=== PATIENT | female | born 1940 | race Caucasian/White ===

== ENCOUNTER → 2016-12-09 12:05 | Outpatient (CLI) | payer MEDICARE | END | disposition home or self-care (01) | LOC: D.RAD 12:05 | DX: R13.12 Dysphagia, oropharyngeal phase (principal) ==

== ENCOUNTER 2018-02-06 14:09 | Inpatient (IN) | payer MEDICARE, MEDICAID ==
[~2018-02-06] VITALS: Ht 157.5 cm; Wt 68.9 kg
--- NOTE | ~2018-02-06 | PN ---
PATIENT:CRISTINA COLON MEDICAL RECORD: [id number] LOCATION:MARINA S[facility] ADMISSION DATE: 02/06/18 PROGRESS NOTE DATE OF SERVICE: 02/09/2018 SUBJECTIVE: The patient's case was discussed with staff. She has no new complaint. OBJECTIVE: The patient is extremely anxious. She constantly thinks that she is falling or her chair is rolling about. She is in need of almost constant reassurance and redirection from the nursing staff. ASSESSMENT: No change in diagnoses. PLAN: Current medicines have been reviewed. I am going to discontinue her Xanax and we will start her on a scheduled dose of Klonopin. Her long-term prognosis is guarded. I am hopeful that the Klonopin will calm her significantly. TRANSINT:[id number] Voice Confirmation ID: [id number] DOCUMENT ID: [id number] MARY HUMPHREYS MD at 1627 CC: [id number] DICTATION DATE: 02/09/18 171 GYROSCOPIC INSTRUMENT TESTER: 02/09/18 2158 ADM IN [place] [address] [place] [address]
--- NOTE | ~2018-02-06 | PN ---
PATIENT:CRISTINA COLON MEDICAL RECORD: [id number] LOCATION:SHEREENVenu OlmedoMary ADMISSION DATE: 02/06/18 PROGRESS NOTE DATE OF SERVICE: 02/27/2018 SUBJECTIVE: The patient's case was discussed with staff. She has no new complaint. OBJECTIVE: The patient is calmer but still intrusive and attention seeking. She has very limited insight about her condition. ASSESSMENT: No change in diagnoses. PLAN: Current medicines have been reviewed and will be maintained. I anticipate she can be transitioned out of the hospital soon. Her long-term prognosis is guarded. She did require p.r.n. medication last night. I will check another Depakote level. TRANSINT:[id number] Voice Confirmation ID: [id number] DOCUMENT ID: [id number] MARY HUMPHREYS MD at 1147 CC: [id number] DICTATION DATE: 02/27/18 1635 SALES SERVICE TECHNICIAN: 02/28/18 0051 ADM IN [place] [id number] [place] [address]
--- NOTE | ~2018-02-06 | PN ---
PATIENT:CRISTINA COLON MEDICAL RECORD: [id number] LOCATION:MARINA OlmedoMary ADMISSION DATE: 02/06/18 PROGRESS NOTE DATE OF SERVICE: 02/12/2018 SUBJECTIVE: The patient's case was discussed with staff. She has no new complaint. OBJECTIVE: The patient is somewhat sedated. She slept 10 hours last night. She certainly is much calmer, but I am concerned about the sedation. I am going to reduce her Klonopin to half its current dose. I will monitor her for clinical changes. TRANSINT:[id number] Voice Confirmation ID: [id number] DOCUMENT ID: [id number] MARY HUMPHREYS MD at 1556 CC: [id number] DICTATION DATE: 02/12/18 1315 DIRECTOR OF STRATEGIC PROGRAMS: 02/12/18 1533 ADM IN [place] [id number] [place] [address]
--- NOTE | ~2018-02-06 | PN ---
PATIENT:CRISTINA COLON MEDICAL RECORD: [id number] LOCATION:MARINA OlmedoMary ADMISSION DATE: 02/06/18 PROGRESS NOTE DATE OF SERVICE: 02/13/2018 SUBJECTIVE: The patient's case was discussed with staff. She has no new complaint. OBJECTIVE: The patient is in good behavioral control with limited insight about her condition. She does tolerate her medicines well. ASSESSMENT: No change in diagnoses. PLAN: The patient will be maintained on current medicines. She is disorganized, but certainly has shown some significant improvement. She is much calmer, but I am concerned about her appetite, which is not very robust. I am going to check a Depakote level. TRANSINT:[id number] Voice Confirmation ID: [id number] DOCUMENT ID: [id number] MARY HUMPHREYS MD at 1042 CC: [id number] DICTATION DATE: 02/13/18 1640 SIZE WORKER: 02/13/18 1754 ADM IN [place] [id number] [place] [address]
--- NOTE | ~2018-02-06 | PN ---
PATIENT:CRISTINA COLON MEDICAL RECORD: [id number] LOCATION:MARINA Sánchez ADMISSION DATE: 02/06/18 PROGRESS NOTE DATE OF SERVICE: 02/17/2018 SUBJECTIVE: The patient's case was discussed with staff. She has no new complaint. OBJECTIVE: The patient is in good behavioral control with limited insight about her condition. She tolerates her medicines well. ASSESSMENT: No change in diagnoses. PLAN: Current medicines and therapies have been reviewed and will be maintained. Long-term prognosis is guarded. The patient was cursing the staff earlier, but now is calmer. TRANSINT:[id number] Voice Confirmation ID: [id number] DOCUMENT ID: [id number] MARY HUMPHREYS MD at 1309 CC: [id number] DICTATION DATE: 02/17/18 1337 RESTAURANT SHIFT LEADER: 02/17/18 1553 ADM IN [place] [id number] [place] [id number]
--- NOTE | ~2018-02-06 | PN ---
PATIENT:CRISTINA COLON MEDICAL RECORD: [id number] LOCATION:MARINA OlmedoMary ADMISSION DATE: 02/06/18 PROGRESS NOTE DATE OF SERVICE: 02/18/2018 SUBJECTIVE: The patient's case was discussed with staff. She has no new complaint. OBJECTIVE: The patient is in good behavioral control. She is receiving a significant dose of both Klonopin and Geodon and does seem significantly calmer. ASSESSMENT: No change in diagnoses. PLAN: I am going to check a Depakote level on this patient. Her long-term prognosis is guarded. TRANSINT:[id number] Voice Confirmation ID: [id number] DOCUMENT ID: [id number] MARY HUMPHREYS MD at 1050 CC: [id number] DICTATION DATE: 02/18/18 1325 SECONDARY HISTORY TEACHER: 02/18/18 1350 ADM IN [place] [id number] [place] [address]
--- NOTE | ~2018-02-06 | PN ---
PATIENT:CRISTINA COLON MEDICAL RECORD: [id number] LOCATION:RamaJOHNVenu OlmedoMary ADMISSION DATE: 02/06/18 PROGRESS NOTE DATE OF SERVICE: 02/28/2018 SUBJECTIVE: The patient's case was discussed with staff. She has no new complaint. OBJECTIVE: The patient is in good behavioral control with limited insight about her condition. She tolerates her medicines well. She is confused and at times irritable and agitated, but not directly dangerous. She is going to be transitioned out of the hospital tomorrow. She is going to go to the [facility]. TRANSINT:[id number] Voice Confirmation ID: [id number] DOCUMENT ID: [id number] MARY HUMPHREYS MD at 1142 CC: [id number] DICTATION DATE: 02/28/18 1207 ASSOCIATE PROFESSOR OF PSYCHOLOGY: 02/28/18 1215 ADM IN [place] [id number] [place] [address]
--- NOTE | ~2018-02-06 | PN ---
PATIENT:CRISTINA COLON MEDICAL RECORD: [id number] LOCATION:MARINA OlmedoMary ADMISSION DATE: 02/06/18 PROGRESS NOTE DATE OF SERVICE: 02/25/2018 SUBJECTIVE: The patient's case was discussed with staff. She has no new complaint. OBJECTIVE: The patient is attention seeking and somewhat difficult to redirect. She is sleeping adequately and at this point, I do not think she is excessively sedated. She is likely to be at or near her baseline level of functioning. Again, staff is going to watch her extra carefully about medication compliance as I explained in yesterday's note about the almost 50% drop in her Depakote over the period of 4-5 days. TRANSINT:[id number] Voice Confirmation ID: [id number] DOCUMENT ID: [id number] MARY HUMPHREYS MD at 1052 CC: [id number] DICTATION DATE: 02/25/18 1218 DOBIE MAN: 02/25/18 1515 ADM IN [id number] [place] [address]
--- NOTE | ~2018-02-06 | PN ---
PATIENT:CRISTINA COLON MEDICAL RECORD: [id number] LOCATION:MARINA Sánchez ADMISSION DATE: 02/06/18 PROGRESS NOTE DATE OF SERVICE: 02/07/2018 SUBJECTIVE: The patient's case was discussed with staff. She has no new complaint. OBJECTIVE: The patient denies intent to harm herself or others. She is tolerating her medicines well. She is delusional and disorganized, but has not been openly aggressive. ASSESSMENT: No change in diagnoses. PLAN: I planned to treat the patient with Depakote for its mood stabilizing properties. She will be monitored for clinical changes associated with its use. Her long-term prognosis is guarded. TRANSINT:[id number] Voice Confirmation ID: [id number] DOCUMENT ID: [id number] MARY HUMPHREYS MD at 0827 CC: [id number] DICTATION DATE: 02/07/18 1446 GREEN CHAIN MARKER: 02/07/18 1507 ADM IN [id number] [place] [address]
--- NOTE | ~2018-02-06 | PN ---
PATIENT:CRISTINA COLON MEDICAL RECORD: [id number] LOCATION:MARINA Sánchez ADMISSION DATE: 02/06/18 PROGRESS NOTE DATE OF SERVICE: 02/08/2018 SUBJECTIVE: The patient's case was discussed with staff. She has no new complaint. OBJECTIVE: The patient denies intent to harm herself or others. She tolerates her medicines well. She is sleeping and eating reasonably well. She has not been openly aggressive with staff. ASSESSMENT: No change in diagnoses. PLAN: Current medicines have been reviewed. I am going to stop the BuSpar based upon a lack of clear evidence that it is benefitting the patient. She will be monitored for clinical changes associated with its use. TRANSINT:[id number] Voice Confirmation ID: [id number] DOCUMENT ID: [id number] MARY HUMPHREYS MD at 1613 CC: [id number] DICTATION DATE: 02/08/18 1224 BULK SYSTEM OPERATOR: 02/08/18 1244 ADM IN [place] [address] [place] [id number]
--- NOTE | ~2018-02-06 | PN ---
PATIENT:CRISTINA COLON MEDICAL RECORD: [id number] LOCATION:MARINA Sánchez ADMISSION DATE: 02/06/18 PROGRESS NOTE DATE OF SERVICE: 02/10/2018 SUBJECTIVE: The patient's case was discussed with staff. She has no new complaint. OBJECTIVE: The patient is in good behavioral control with limited insight about her condition. She does tolerate her medicines well. She has been very dysfunctional, thinking she is falling, this does not look at all like someone with vertigo. She is requiring almost constant attention from staff, I think she is delusional. She certainly is not eating either. ASSESSMENT: No change in diagnoses. PLAN: The patient has been prescribed Megace to assist with appetite stimulation. I am now going to start her on low dose of an antipsychotic to help with her grossly disorganized thought processes. TRANSINT:[id number] Voice Confirmation ID: [id number] DOCUMENT ID: [id number] MARY HUMPHREYS MD at 1249 CC: [id number] DICTATION DATE: 02/10/18 1646 FULLING MILL OPERATOR: 02/10/18 1741 ADM IN [facility] [address] [place] [address]
--- NOTE | ~2018-02-06 | PN ---
PATIENT:CRISTINA COLON MEDICAL RECORD: [id number] LOCATION:MARINA OlmedoMary ADMISSION DATE: 02/06/18 PROGRESS NOTE DATE OF SERVICE: 02/11/2018 SUBJECTIVE: The patient's case was discussed with staff. She has no new complaint. OBJECTIVE: The patient denies intent to harm herself or others. She is tolerating her medicines well. She did receive some p.r.n. Ativan because of some anxiety this morning, but I am encouraged that the changes that have been made to her medication regimen over the past few days will be ones that will help her in the long-term be less anxious and agitated. TRANSINT:[id number] Voice Confirmation ID: [id number] DOCUMENT ID: [id number] MARY HUMPHREYS MD at 1556 CC: [id number] DICTATION DATE: 02/11/18 1307 BOLT HEADER: 02/11/18 1312 ADM IN [facility] [address] [place] [id number]
--- NOTE | ~2018-02-06 | PN ---
PATIENT:CRISTINA COLON MEDICAL RECORD: [id number] LOCATION:MARINA OlmedoMary ADMISSION DATE: 02/06/18 PROGRESS NOTE DATE OF SERVICE: 02/15/2018 SUBJECTIVE: The patient's case was discussed with staff. She has no new complaint. OBJECTIVE: The patient was quite agitated this morning. She was yelling and actively hallucinating. ASSESSMENT: No change in diagnoses. PLAN: The patient's condition is worse. I already have started her on Zyprexa, but I am going to increase the dose today. TRANSINT:[id number] Voice Confirmation ID: [id number] DOCUMENT ID: [id number] MARY HUMPHREYS MD at 1021 CC: [id number] DICTATION DATE: 02/15/18 1218 MAINTENANCE JOB TITLES: 02/15/18 1419 ADM IN [facility] [address] [place] [address]
--- NOTE | ~2018-02-06 | DS ---
PATIENT:CRISTINA COLON :38 MEDICAL RECORD: [id number] DISCHARGE SUMMARY ADMISSION DATE: 02/06/18 DISCHARGE DATE: 03/01/18 PSYCHIATRIC DISCHARGE SUMMARY IDENTIFYING DATA: The patient is 77 years old and she is admitted to the hospital on a voluntary basis because of agitation. She has a known chronically mentally ill person who lives in a long-term in [place]. She has been very agitated there, yelling, cursing and threatening staff. She admits to some of this, but is minimizing it. She endorses auditory and visual hallucinations, but cannot give specifics. She denies that she wants to harm herself or others. HOSPITAL COURSE: The patient was admitted to the hospital and evaluated from both a medical, psychological, and social standpoint. She was treated with both mood stabilizing and memory enhancing medications. She showed improvement in her psychotic symptoms and her mood lability improved some, but she was still having some episodes of mood lability. She clearly has evidence of significant cognitive decline consistent with a dementing illness and she was given a cholinesterase inhibitor to assist with this problem. She subsequently had improved significantly and was no longer unmanageable in the long-term and was returned to the long-term. DISCHARGE DIAGNOSES: AXIS I: 1. Schizoaffective disorder, bipolar type. 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 AXIS II: None. AXIS III: Orthopedic surgery to the left knee. AXIS IV: Moderate stressors. AXIS V: Global assessment of functioning was 35. PLAN: At the time of discharge, the patient was having some attention seeking behaviors, but was not unmanageable. There were no psychotic symptoms and there was no evidence of direct or acute dangerousness to herself or others. She was subsequently discharged and is to have followup with her primary care long-term physician and her outpatient psychiatrist. She is to be maintained on her current medications. TRANSINT:[id number] Voice Confirmation ID: [id number] DOCUMENT ID: [id number] MARY HUMPHREYS MD CC: [id number] DICTATION DATE: 03/03/18 1245 ALLIANCES CONSULTANT: 03/04/18 0159 DIS IN 03/01/18 [place] [address]
--- NOTE | ~2018-02-06 | PN ---
PATIENT:CRISTINA COLON MEDICAL RECORD: [id number] LOCATION:MARINA Sánchez ADMISSION DATE: 02/06/18 PROGRESS NOTE DATE OF SERVICE: 02/24/2018 SUBJECTIVE: The patient's case was discussed with staff. She has no new complaint. OBJECTIVE: The patient denies intent to harm herself or others. She generally tolerates her medicines well. She is not over sedated. She is continuing to engage in attention seeking and help rejecting behavior, but it is not something that represents a direct danger. It is more of a management issue. Interestingly, I have a good reason to believe that she is not always taking her medications as she has a significant drop in her Depakote level over the past 5 days without a change in the dose. The only explanation is compliance. I am going to talk with the treatment team and nursing staff about watching her when she takes her medications more carefully to ensure that she is not cheeking any of them. I did not discuss this with her today and do not intend to do so, but will ask staff to be particularly vigilant in observing what she does. TRANSINT:[id number] Voice Confirmation ID: [id number] DOCUMENT ID: [id number] MARY HUMPHREYS MD at 1204 CC: [id number] DICTATION DATE: 02/24/18 185 INTERNET RETAILER: 02/25/18 0146 ADM IN [place] [id number] [place] [address]
--- NOTE | ~2018-02-06 | HP ---
PATIENT: CRISTINA COLON MEDICAL RECORD: [id number] ACCOUNT: [id number] LOCATION:MARINA Sánchez8 : 38 ADMISSION DATE: 02/06/18 PCP: No PCP HISTORY AND PHYSICAL EXAMINATION PSYCHIATRIC EVALUATION IDENTIFYING DATA: The patient is 77 years old and she is admitted to the hospital on a voluntary basis secondary to agitation. CHIEF COMPLAINT: None. HISTORY OF PRESENT ILLNESS: The patient is a known chronically mentally ill woman who lives in a detention in [place]. She has been very agitated there, yelling, cursing, threatening staff. She admits to some of this, but is minimizing it. She does endorse auditory and visual hallucinations, but is unable to give me specifics. She denies that she would seek to harm herself or others. PAST MEDICAL HISTORY: Significant for orthopedic changes to her leg. Apparently, she had fallen and has damaged her left knee in some way such that it is not functional and has not been for years. She otherwise is relatively free of chronic medical problems. PAST PSYCHIATRIC HISTORY: Significant for longstanding psychiatric problems with numerous hospitalizations and extensive inpatient and outpatient treatment. FAMILY PSYCHIATRIC HISTORY: Denied by the patient. ALLERGIES: No known drug allergies. CURRENT MEDICATIONS: Include Lamictal, BuSpar, Xanax, and a variety of vitamins. SOCIAL HISTORY: The patient is single. She has no significant work history and never functioned very well either socially or occupationally. She does have an adult son who is involved with her care. She denies a history of drug or alcohol abuse. She does not smoke cigarettes. MENTAL STATUS EXAMINATION: The patient is awake, alert and oriented to person and place, but not to time or situation. She identifies the year as 0. Her mood is anxious. Her affect is constricted. Thought processes are circumstantial. Memory, concentration, and abstraction abilities are impaired. She has no active thoughts of harming herself or others and denies active psychotic symptoms. ASSETS: Stable living environment. LIABILITIES: Limited insight. DIAGNOSTIC IMPRESSION: AXIS I: Schizoaffective disorder, bipolar type. Senile dementia of the Alzheimer's type. AXIS II: None. AXIS III: Orthopedic injury to the left leg to left knee. HISTORY AND PHYSICAL [id number] CRISTINA COLON AXIS IV: Moderate. AXIS V: Global assessment of functioning 30. PLAN: At this time, the patient is admitted to the hospital secondary to psychotic, agitated behavior at the detention. She will be comprehensively evaluated from both a medical, psychological, and social standpoint. She will be treated with both mood stabilizing and memory enhancing medications. Her long-term prognosis is guarded. TRANSINT:[id number] Voice Confirmation ID: [id number] DOCUMENT ID: [id number] MARY HUMPHREYS MD at 1203 CC: [id number] DICTATION DATE: 02/06/18 1620 MANAGER INTEL: 02/06/18 1734 ADM IN [facility] [address] [place] [id number]
--- NOTE | ~2018-02-06 | PN ---
PATIENT:CRISTIAN COLON MEDICAL RECORD: [id number] LOCATION:MARINA OlmedoMary ADMISSION DATE: 02/06/18 PROGRESS NOTE DATE OF SERVICE: 02/26/2018 SUBJECTIVE: The patient's case was discussed with staff. She has no new complaint. OBJECTIVE: The patient is in good behavioral control with limited insight about her condition. She tolerates her medicines well. ASSESSMENT: No change in diagnoses. PLAN: Current medicines have been reviewed and will be maintained. Long-term prognosis is guarded. TRANSINT:[id number] Voice Confirmation ID: [id number] DOCUMENT ID: [id number] MARY HUMPHREYS MD at 1541 CC: [id number] DICTATION DATE: 02/26/18 1211 ARTILLERY MAINTENANCE SUPERVISOR: 02/26/18 1718 ADM IN [place] [id number] [place] [address]
--- NOTE | ~2018-02-06 | PN ---
PATIENT:CRISTINA COLON MEDICAL RECORD: [id number] LOCATION:MARINA Sánchez ADMISSION DATE: 02/06/18 PROGRESS NOTE DATE OF SERVICE: 02/14/2018 SUBJECTIVE: The patient's case was discussed with staff. She has no new complaint. OBJECTIVE: The patient is somewhat blunted and withdrawn, but denies that she would seek to harm herself or others. She makes some delusional statements, but overall she seems to be better. ASSESSMENT: No change in diagnoses. PLAN: Current medicines and therapies have been reviewed and will be maintained. Long-term prognosis is guarded. TRANSINT:[id number] Voice Confirmation ID: [id number] DOCUMENT ID: [id number] MARY HUMPHREYS MD at 1133 CC: [id number] DICTATION DATE: 02/14/18 1528 DROP WIRE BUILDER: 02/14/18 2042 ADM IN [place] [address] [place] [id number]
--- NOTE | ~2018-02-06 | PN ---
PATIENT:CRISTINA COLON MEDICAL RECORD: [id number] LOCATION:HonorioMIKEVenu OlmedoMary ADMISSION DATE: 02/06/18 PROGRESS NOTE DATE OF SERVICE: 02/16/2018 SUBJECTIVE: The patient's case was discussed with staff. She has no new complaint. OBJECTIVE: The patient is disorganized with limited insight about her condition. She has not been openly aggressive today. ASSESSMENT: No change in diagnoses. PLAN: Current medicines have been reviewed and will be maintained. Long-term prognosis is guarded. TRANSINT:[id number] Voice Confirmation ID: [id number] DOCUMENT ID: [id number] MARY HUMPHREYS MD at 1327 CC: [id number] DICTATION DATE: 02/16/18 1041 CERTIFIED MEDICAL ASST: 02/16/18 1204 ADM IN [facility] [address] [place] [address]
--- NOTE | ~2018-02-06 | PN ---
PATIENT:CRISTINA COLON MEDICAL RECORD: [id number] LOCATION:MARINA OlmedoMary ADMISSION DATE: 02/06/18 PROGRESS NOTE DATE OF SERVICE: 02/21/2018 SUBJECTIVE: The patient's case was discussed with staff. She has no new complaint. OBJECTIVE: The patient is significantly calmer and less disorganized. She generally tolerates her medicines well. ASSESSMENT: No change in diagnoses. PLAN: Supportive and educational interventions were made. Long-term prognosis is guarded. TRANSINT:[id number] Voice Confirmation ID: [id number] DOCUMENT ID: [id number] MARY HUMPHREYS MD at 1058 CC: [id number] DICTATION DATE: 02/21/18 1439 FRUIT DRYER: 02/21/18 1630 ADM IN [place] [id number] [place] [id number]
--- NOTE | ~2018-02-06 | PN ---
PATIENT:CRISTINA COLON MEDICAL RECORD: [id number] LOCATION:SHEREENVenu Gonzalo ADMISSION DATE: 02/06/18 PROGRESS NOTE DATE OF SERVICE: 02/23/2018 SUBJECTIVE: The patient's case was discussed with staff. She has no new complaint. OBJECTIVE: The patient is much more awake and alert today. She has fairly limited insight about her situation. She continues to be attention seeking. She is also delusional and was crying out loudly insisting that a tack was stuck in the heel of her foot, but when the foot was examined, there was no injury or foreign body stuck into it and when told this, she immediately calmed down. She then a few minutes later began shouting about something else. ASSESSMENT: No change in diagnoses. PLAN: The patient will have her Depakote level checked. Her long-term prognosis is guarded. TRANSINT:[id number] Voice Confirmation ID: [id number] DOCUMENT ID: [id number] MARY HUMPHREYS MD at 1730 CC: [id number] DICTATION DATE: 02/23/18 1432 ARTISTS' MODEL: 02/23/18 1524 ADM IN [facility] [address] [place] [address]
--- NOTE | ~2018-02-06 | PN ---
PATIENT:CRISTINA COLON MEDICAL RECORD: [id number] LOCATION:MARINA OlmedoMary ADMISSION DATE: 02/06/18 PROGRESS NOTE DATE OF SERVICE: 02/19/2018 SUBJECTIVE: The patient's case was discussed with staff. She has no new complaint. OBJECTIVE: The patient is in good behavioral control with limited insight about her condition. She does tolerate her medicines well. ASSESSMENT: No change in diagnoses. PLAN: Current medicines have been reviewed and will be maintained. Long-term prognosis is guarded. TRANSINT:[id number] Voice Confirmation ID: [id number] DOCUMENT ID: [id number] MARY HUMPHREYS MD at 1551 CC: [id number] DICTATION DATE: 02/19/18 1200 GAMING TABLE OPERATOR: 02/19/18 1223 ADM IN [place] [id number] [place] [address]
--- NOTE | ~2018-02-06 | PN ---
PATIENT:CRISTINA COLON MEDICAL RECORD: [id number] LOCATION:MARINA Sánchez ADMISSION DATE: 02/06/18 PROGRESS NOTE DATE OF SERVICE: 02/22/2018 SUBJECTIVE: The patient's case was discussed with staff. She has no new complaint. OBJECTIVE: The patient is much calmer than she has been. She has limited insight. Her long-term prognosis is guarded. ASSESSMENT: No change in diagnoses. PLAN: The patient will be maintained on current medicines, which I have reviewed. Her long-term prognosis is guarded. TRANSINT:[id number] Voice Confirmation ID: [id number] DOCUMENT ID: [id number] MARY HUMPHREYS MD at 0908 CC: [id number] DICTATION DATE: 02/22/18 1130 EXCHANGE TELLER: 02/22/18 1228 ADM IN [place] [id number] [place] [address]
--- NOTE | ~2018-02-06 | PN ---
PATIENT:CRISTINA COLON MEDICAL RECORD: [id number] [facility] ADMISSION DATE: 02/06/18 PROGRESS NOTE DATE OF SERVICE: 02/20/2018 SUBJECTIVE: The patient's case was discussed with staff. She has no new complaint. OBJECTIVE: The patient is in good behavioral control with limited insight about her condition. She generally tolerates her medicines well. ASSESSMENT: No change in diagnoses. PLAN: Brief supportive and educational interventions were made. The patient will be treated with a higher dose of Klonopin secondary to her level of agitation. Unfortunately, she required p.r.n. medication this morning because of some agitation. TRANSINT:[id number] Voice Confirmation ID: [id number] DOCUMENT ID: [id number] MARY HUMPHREYS MD at 0932 CC: [id number] DICTATION DATE: 02/20/18 1631 SENIOR PREMIUM AUDITOR: 02/20/18 1722 ADM IN [id number] [place] [address]
--- NOTE | ~2018-02-06 | PN ---
PATIENT:CRISTINA COLON MEDICAL RECORD: [id number] LOCATION:[facility] ADMISSION DATE: 02/06/18 PROGRESS NOTE DATE OF SERVICE: 03/01/2018 SUBJECTIVE: The patient's case was discussed with staff. She has no new complaint. OBJECTIVE: The patient is in good behavioral control with limited insight about her condition. She tolerates her medicines well. ASSESSMENT: No change in diagnoses. PLAN: Supportive and educational interventions were made. Long-term prognosis is guarded. TRANSINT:[id number] Voice Confirmation ID: [id number] DOCUMENT ID: [id number] MARY HUMPHREYS MD at 1018 CC: [id number] DICTATION DATE: 03/01/18 1251 DIALYSIS NURSE: 03/01/18 1439 DIS IN 03/01/18 [id number] [place] [address]
[2018-02-06] MEDS ORDERED: LAMICTAL100 MG PO (15:39)
[2018-02-06] MEDS ORDERED: THEREMS-M1 TAB (15:39)
[2018-02-06] MEDS ORDERED: ASCORBIC ACID500 MG PO (15:41)
[2018-02-06] MEDS ORDERED: BUSPAR5 MG PO (15:42)
[2018-02-06] MEDS ORDERED: GUAIFENESI100 MG/5 M PO (15:43)
[2018-02-06] MEDS ORDERED: IBUPROFEN200 MG PO (15:43)
[2018-02-06] MEDS ORDERED: MILK OF MAGNESI30 ML PO (15:44)
[2018-02-06] MEDS ORDERED: XANAX0.5 MG PO (15:52)
[2018-02-06 15:55] VITALS: BP 152/71
[2018-02-06 19:38] VITALS: BP 139/61; BP 169/119
[2018-02-06 19:51] LABS: ALBUMIN 3.3 g/dL (3.4-5.0); ANION GAP 10.9 mmol/L (8-16); BILIRUBIN - TOTAL 0.24 mg/dL (0.2-1.3); CALCIUM 9.1 mg/dL (8.5-10.1); CARBON DIOXIDE 30.2 mmol/L (21.0-32.0); CHOL - HDL RATIO 3.7 ratio (2.3-4.1); CREATININE - SERUM 1.1 mg/dL (0.6-1.3); POTASSIUM - SERUM 4.1 mmol/L (3.5-5.1); PROTEIN - SERUM 7.9 g/dL (6.4-8.2); THYROID STIMULATING HORMONE 1.49 uIU/mL (0.36-3.74)
[2018-02-06 19:59] LABS: BASOPHILS 0.4 % (0-2); EOSINOPHILS 1.8 % (0-7); HEMATOCRIT 40.7 % (36.0-48.0); IMMATURE GRANULOCYTES 0.4 % (0-5); LYMPHOCYTES 30.5 % (15-50); MCH 33.5 pg (26.0-34.0); MCHC 34.4 g/dL (31.0-37.0); MCV 97.4 fL (80.0-100.0); MEAN PLATELET VOLUME 11.4 fL (7.4-10.4); MONOCYTES 10.5 % (2-11); NEUTROPHILS 56.4 % (40-80); PLATELET COUNT 269 10x3/uL (130-400); RBC 4.18 10x6/uL (4.00-5.40); RDW 12.4 % (11.5-14.5); WBC 8.5 10x3/uL (4.8-10.8)
[2018-02-07 08:00] VITALS: BP 140/75
[2018-02-07 12:06] VITALS: Ht 157.5 cm; Wt 68.9 kg
[2018-02-07 19:51] VITALS: BP 144/85
[2018-02-08 08:04] VITALS: BP 143/61
[2018-02-08 08:17] LABS: FOLATE (FOLIC ACID) - SERUM >20.0 ng/mL (>3.0)
[2018-02-08 20:04] VITALS: BP 140/66
[2018-02-09 09:13] VITALS: BP 145/65
[2018-02-09 20:49] VITALS: BP 126/58
[2018-02-10 20:29] VITALS: BP 186/93
[2018-02-11 08:00] VITALS: BP 140/65
[2018-02-11 20:23] VITALS: BP 146/70
[2018-02-12 08:00] VITALS: BP 159/83
[2018-02-12 20:20] VITALS: BP 118/60
[2018-02-13 09:25] VITALS: BP 117/63
[2018-02-13 19:33] VITALS: BP 136/66
[2018-02-14 09:37] VITALS: BP 164/86
[2018-02-14 20:00] VITALS: BP 117/68
[2018-02-15 10:22] VITALS: BP 126/62
[2018-02-15 19:41] VITALS: BP 129/79
[2018-02-16 09:27] VITALS: BP 139/84
[2018-02-16 19:14] VITALS: BP 156/84
[2018-02-17 08:04] VITALS: BP 149/74
[2018-02-17 20:04] VITALS: BP 144/74
[2018-02-18 10:18] VITALS: BP 181/87
[2018-02-18 21:22] VITALS: BP 152/62
[2018-02-19 08:52] VITALS: BP 147/82
[2018-02-19 20:00] VITALS: BP 162/90
[2018-02-20 08:00] VITALS: BP 121/64
[2018-02-21 08:00] VITALS: BP 150/80
[2018-02-21 09:32] LABS: APPEARANCE HAZY (CLEAR); BACTERIA FEW /hpf (NONE SEEN); BILIRUBIN NEGATIVE (NEGATIVE); COLOR YELLOW (YELLOW); EPITHELIAL CELLS OCC /hpf (0-5); GLUCOSE NEGATIVE (NEGATIVE); HYALINE CAST RARE /lpf (NONE SEEN); KETONE MODERATE mg/dL (NEGATIVE); NITRITE NEGATIVE (NEGATIVE); PROTEIN NEGATIVE (NEGATIVE); SPECIFIC GRAVITY 1.025 (1.005-1.020); UROBILINOGEN NORMAL (NORMAL); WHITE CELLS - URINE OCC /hpf (0-5)
[2018-02-21 19:53] VITALS: BP 169/81
[2018-02-22 07:30] VITALS: BP 155/68
[2018-02-22 19:47] VITALS: BP 184/68
[2018-02-23 09:53] VITALS: BP 174/78
[2018-02-23 20:06] VITALS: BP 162/72
[2018-02-24 09:10] VITALS: BP 148/70
[2018-02-24 19:40] VITALS: BP 148/71
[2018-02-25 09:26] VITALS: BP 168/74
[2018-02-26 09:35] VITALS: BP 150/60
[2018-02-26 20:31] VITALS: BP 142/75
[2018-02-27 00:35] LABS: APPEARANCE HAZY (CLEAR); BACTERIA MANY /hpf (NONE SEEN); BILIRUBIN NEGATIVE (NEGATIVE); COLOR YELLOW (YELLOW); EPITHELIAL CELLS 0-5 /hpf (0-5); GLUCOSE NEGATIVE (NEGATIVE); KETONE SMALL mg/dL (NEGATIVE); NITRITE POSITIVE (NEGATIVE); PROTEIN 1+ mg/dL (NEGATIVE); SPECIFIC GRAVITY 1.015 (1.005-1.020); UROBILINOGEN NORMAL (NORMAL); WHITE CELLS - URINE 25-50 /hpf (0-5)
[2018-02-27 07:00] VITALS: BP 158/78
[2018-02-27 17:06] LABS: BASOPHILS 0.3 % (0-2); EOSINOPHILS 2.3 % (0-7); HEMATOCRIT 41.3 % (36.0-48.0); HEMOGLOBIN 13.8 g/dL (12-16); IMMATURE GRANULOCYTES 0.3 % (0-5); MCH 33.1 pg (26.0-34.0); MCHC 33.4 g/dL (31.0-37.0); MEAN PLATELET VOLUME 11.3 fL (7.4-10.4); MONOCYTES 11.7 % (2-11); NEUTROPHILS 62.4 % (40-80); RBC 4.17 10x6/uL (4.00-5.40); RDW 12.5 % (11.5-14.5); WBC 11.1 10x3/uL (4.8-10.8)
[2018-02-27 17:27] LABS: PLATELET COUNT 193 10x3/uL (130-400)
[2018-02-27 17:50] LABS: CALCIUM 9.2 mg/dL (8.5-10.1); CARBON DIOXIDE 25.4 mmol/L (21.0-32.0); CREATININE - SERUM 1.1 mg/dL (0.6-1.3); POTASSIUM - SERUM 4.4 mmol/L (3.5-5.1); VALPROIC ACID (DEPAKOTE) 58.1 ug/mL (50.0-100.0)
[2018-02-27 20:20] VITALS: BP 162/72
[2018-02-28 07:00] VITALS: BP 153/80
[2018-02-28] MEDS ORDERED: DEPAKOTE500 MG PO (12:08)
[2018-02-28] MEDS ORDERED: GEODON40 MG PO (12:09)
[2018-02-28] MEDS ORDERED: KLONOPIN0.5 MG PO (12:09)
[2018-02-28] MEDS ORDERED: MEGACE40 MG PO (12:09)
[2018-02-28] MEDS ORDERED: AKWA TEARS15 ML EACH EYE (12:09)
[2018-02-28 20:00] VITALS: BP 124/50
[2018-03-01 09:36] VITALS: BP 169/95
== END 2018-03-01 12:23 | DRG 57 ==
LOC: D.PSYCH 14:09
PROVIDERS: Family Medicine; Psychiatry & Neurology Psychiatry
DX: G30.1 Alzheimer's disease with late onset (principal); F02.81 Dementia in other diseases classified elsewhere, unspecified severity, with behavioral disturbance; N39.0 Urinary tract infection, site not specified; F25.0 Schizoaffective disorder, bipolar type; G40.909 Epilepsy, unspecified, not intractable, without status epilepticus; H54.8 Legal blindness, as defined in USA; F41.9 Anxiety disorder, unspecified; R26.9 Unspecified abnormalities of gait and mobility; Z91.81 History of falling

== ENCOUNTER → 2018-11-17 13:01 | Outpatient (CLI) | payer MEDICARE ==
[~2018-11-17 13:01] MED LIST: AKWA TEARS15 ML EACH EYE; ASCORBIC ACID500 MG PO; BUSPAR5 MG PO; DEPAKOTE500 MG PO; GEODON40 MG PO; GUAIFENESI100 MG/5 M PO; IBUPROFEN200 MG PO; KLONOPIN0.5 MG PO; LAMICTAL100 MG PO; MEGACE40 MG PO; MILK OF MAGNESI30 ML PO; THEREMS-M1 TAB; XANAX0.5 MG PO
== END | disposition home or self-care (01) ==
LOC: D.RAD 13:00
PROVIDERS: ATTEND Legal Medicine
DX: R13.12 Dysphagia, oropharyngeal phase (principal)